=== PATIENT | male | born 1945 | race Caucasian/White ===

== ENCOUNTER 2019-04-01 11:38 | Emergency (ER) | payer MEDICARE, OTHER ==
[~2019-04-01] VITALS: Ht 111.8 cm; Wt 36.8 kg
[2019-04-01] MEDS ORDERED: MULTCAP PO (11:56)
[2019-04-01] MEDS ORDERED: SYMB16INH INH (11:56)
[2019-04-01] MEDS ORDERED: AZIT-12 PO (11:56)
[2019-04-01] MEDS ORDERED: WARF-23 PO (11:56)
[2019-04-01] MEDS ORDERED: PRED20TA PO (11:56)
[2019-04-01] MEDS ORDERED: DOCU100C16 PO (11:56)
[2019-04-01] MEDS ORDERED: ASPI-527 PO (11:56)
[2019-04-01] MEDS ORDERED: CVS400CA PO (11:56)
[2019-04-01] MEDS ORDERED: ALBU83IN INH (11:56)
[2019-04-01] MEDS ORDERED: LISI-538 PO (11:56)
[2019-04-01] MEDS ORDERED: MONT10TA2 PO (11:56)
[2019-04-01] MEDS ORDERED: OXYC1TAB23 PO (11:56)
[2019-04-01] MEDS ORDERED: SPIR1CAP INH (11:56)
[2019-04-01] MEDS ORDERED: ATEN50TA2 PO (11:56)
[2019-04-01 12:45] LABS: VENOUS BASE EXCESS 5.1 (-2.0-2.0); VENOUS HCO3 31.3 MEQ/L (23.0-27.0); VENOUS O2 SATURATION 94.1 % (60.0-80.0); VENOUS PARTIAL PRESSURE CO2 53.3 mmHg (38.0-50.0); VENOUS PARTIAL PRESSURE O2 73.7 mmHg (30.0-50.0); VENOUS PH 7.386 UNITS (7.330-7.430); VENOUS TOTAL CO2 32.9 MEQ/L (24.0-28.0)
--- NOTE | 2019-04-01 12:45 | REP ---
Two-view chest: 04/01/2019. Indication: Dyspnea. Cough. Comparison: None. Findings: There is no air space consolidation. The lungs are hyperinflated bilaterally. No pleural effusion or pneumothorax is present. The cardiomediastinal silhouette is unremarkable. Osteopenia and degenerative sequelae of the thoracic spine are present. Impression: No acute cardiopulmonary process. COPD Electronically Signed by Duane Cuevas DO 04/01/2019 12:36 P
[2019-04-01 12:46] LABS: BASO % 0.1 % (0.0-1.0); EOS % 0.1 % (0.0-3.0); HEMATOCRIT 33.9 % (42.0-52.0); HEMOGLOBIN 10.6 g/dl (13.5-17.5); LYMPH # 0.6 10^3/uL (1.5-5.0); LYMPH % 7.9 % (24.0-44.0); MEAN CORPUSCULAR HEMOGLOBIN 28.9 pg (27.0-33.0); MEAN CORPUSCULAR HGB CONC 31.3 g/dl (32.0-36.5); MEAN CORPUSCULAR VOLUME 92.4 fl (80.0-96.0); MONO # 0.1 10^3/uL (0.0-0.8); MONO % 1.8 % (0.0-5.0); NEUTROPHILS % 89.6 % (36.0-66.0); PLATELET COUNT, AUTOMATED 295 10^3/uL (150-450); RED BLOOD COUNT 3.67 10^6/uL (4.30-6.10); WHITE BLOOD COUNT 7.8 10^3/uL (4.0-10.0)
[2019-04-01 12:57] LABS: INR 3.58; PROTHROMBIN TIME 35.8 SECONDS (11.8-14.0)
[2019-04-01 13:14] LABS: BLOOD UREA NITROGEN 20 MG/DL (7-18); CALCIUM LEVEL 9.2 MG/DL (8.8-10.2); CARBON DIOXIDE LEVEL 30 MEQ/L (21-32); CHLORIDE LEVEL 103 MEQ/L (98-107); CK-MB VALUE MASS 1.4 NG/ML (<3.6); CPK CREATINE PHOSPHOKINASE 51 U/L (39-308); CREATININE FOR GFR 0.83 MG/DL (0.70-1.30); GLOMERULAR FILTRATION RATE > 60.0 (>42); GLUCOSE, FASTING 107 MG/DL (70-100); MB/CK RELATIVE INDEX 2.75 (< OR =4); POTASSIUM SERUM 4.7 MEQ/L (3.5-5.1); SODIUM LEVEL 140 MEQ/L (136-145); TROPONIN I < 0.02 NG/ML (< 0.10)
[2019-04-01] MEDS ORDERED: hydrOXYzine 25 MG TAB PO STA (15:07)
[2019-04-01] MEDS ORDERED: IPRATROPIUM 0.5MG/ALBUTEROL 2.5MG INH SOL UD 3ML (DUONEB)(J7620) NEB ONE (15:15)
[2019-04-01] MEDS ORDERED: HYDR-3363 PO (15:51)
[2019-04-01] MEDS ORDERED: IPRA0.00 NEB (15:51)
[2019-04-01 16:28] VITALS: BP 131/69
--- NOTE | 2019-04-01 19:23 | ECGEPIP ---
[facility] - ED Test Date: 2019-04-01 Pat Name: DANA BROOKS Department: Room: - Gender: Male Manager Public: issa : [id number] Requested By: Bridget Olvera Order Number: [id number] Reading MD: Bridget Olvera Measurements Intervals [place] Rate: 81 P: 86 MA: 151 QRS: 75 QRSD: 87 T: 78 QT: 344 QTc: 400 Interpretive Statements SINUS RHYTHM POSSIBLE RIGHT ATRIAL ENLARGEMENT POSSIBLE LEFT ATRIAL ENLARGEMENT ST DEVIATION AND MODERATE T-WAVE ABNORMALITY, CONSIDER ANTERIOR ISCHEMIA LOW QRS VOLTAGE LIMB LEADS DELAYED R WAVE PROGRESSION NO PRIOR ECG FOR COMPARISON CLINICAL CORRELATION ADVISED Electronically Signed on 04-01-2019 19:22:48 EST by Bridget Olvera
== END 2019-04-01 16:33 | disposition home or self-care (01) ==
LOC: EDBD 11:38 → M ED 11:38
DX: J44.9 Chronic obstructive pulmonary disease, unspecified (principal); F41.9 Anxiety disorder, unspecified; R06.02 Shortness of breath; I10 Essential (primary) hypertension; E78.5 Hyperlipidemia, unspecified; Z87.891 Personal history of nicotine dependence; Z79.82 Long term (current) use of aspirin; Z79.01 Long term (current) use of anticoagulants; Z79.899 Other long term (current) drug therapy; Z88.0 Allergy status to penicillin; Z88.5 Allergy status to narcotic agent

== ENCOUNTER → 2019-12-30 | Outpatient (CLI) | payer OTHER ==
[~2019-12-30] MED LIST: ALBU83IN INH; ASPI-527 PO; ATEN50TA2 PO; AZIT-12 PO; CVS400CA PO; DOCU100C16 PO; HYDR-3363 PO; IPRA0.00 NEB; LISI-538 PO; MONT10TA4 PO; MULTCAP PO; OXYC1TAB23 PO; PRED20TA PO; SPIR1CAP INH; SYMB16INH INH; WARF-23 PO
--- NOTE | 2019-12-30 11:34 | PFTRPT ---
Weight: 86.00 Lbs BSA: 1.41 Diagnosis: J44.9 DATE: 12/30/2019 ORDERING PHYSICIAN: Dr. Julio Perez Pre and post bronchodilator therapy have excellent technical quality. Forced vital capacity is greatly reduced. FEV1 out of proportion obstructive index is therefore reduced. Expiratory limb of the flow volume loop with very significant flow rate limitation. No significant additional bronchodilator response is identified. Slow vital capacity is largely in the forced maneuver suggesting significant air trapping. Diffusion capacity is greatly reduced and does not correct for alveolar volume. No hemoglobin available for correction. IMPRESSION: Severe obstructive ventilatory impairment with suspect significant underlying air trapping and significant diffusion capacity impairment. Please correlate clinically. MTDD
== END ==
LOC: M CARPUL 10:44
PROVIDERS: ATTEND Internal Medicine
DX: J44.9 Chronic obstructive pulmonary disease, unspecified (principal)